=== PATIENT | female | born 1970 | race Caucasian/White ===

== ENCOUNTER 2018-04-11 11:03 | Emergency (ER) | END 2018-04-11 11:40 | disposition home or self-care (01) ==

== ENCOUNTER 2018-09-21 11:33 | Emergency (ER) | payer MEDICAID ==
[~2018-09-21] VITALS: Ht 165.1 cm; Wt 93.4 kg
[~2018-09-21 11:33] MED LIST: AMOX1TAB10 PO; BENZ-6 PO; CETI10CA PO; CYCL10TA7 PO; FLUT9.9S NASAL; GUAI-637 PO; NAPR-985 PO; NITR-58 PO; PHEN-537 PO
[2018-09-21 11:37] VITALS: Ht 165.1 cm; Wt 93.4 kg
[2018-09-21] MEDS ORDERED: AMLO-147 PO (19:24)
[2018-09-21] MEDS ORDERED: HYDR25TA6 PO (19:24)
[2018-09-21] MEDS ORDERED: ALBU8.5H8 INH (19:24)
--- NOTE | 2018-09-21 19:28 | ERD ---
ER Documentation Chief Complaint Chief Complaint PRODUCTIVE COUGH X 2 WEEKS, HTN HPI This is a 48-year-old woman complaining of nonproductive cough x2 weeks she does have a history of hypertension and has been using benazepril x2 years but states when she stopped using her benazepril 3 days ago her coughing improved (but her blood pressure went up). She suspected her benazepril may have something to do with her nonproductive cough. She has had no URI symptoms, no recent travel no calf or leg swelling, no chest pain, no fevers or chills, no sick contacts. She denies headache or blurry vision. ROS All systems reviewed and are negative except as per history of present illness. Medications Home Meds Active Scripts Hydrochlorothiazide* (Hydrochlorothiazide*) 25 Mg Tab, 25 MG PO DAILY, #30 TAB Prov:FAY KITCHEN MD 09/21/18 Amlodipine Besylate* (Amlodipine Besylate*) 10 Mg Tablet, 10 MG PO DAILY, #30 TAB Prov:FAY KITCHEN MD 09/21/18 Albuterol Sulfate* (Proair HFA*) 8.5 Gm Hfa.aer.ad, 2 PUFF INH Q6H PRN for WHEEZING AND SOB, #1 INHALER Prov:FAY KITCHEN MD 09/21/18 Guaifenesin* (Robitussin*) 100 Mg/5 Ml Syrup, 200 MG PO Q6H PRN for COUGH, #120 ML Prov:POLY BENJAMIN NP 04/11/18 Benzonatate* (Tessalon Perle*) 100 Mg Capsule, 100 MG PO Q8H PRN for COUGH, #30 CAP Prov:POLY BENJAMIN NP 04/11/18 Cetirizine Hcl* (Zyrtec*) 10 Mg Capsule, 10 MG PO DAILY, #30 TAB.CHEW Prov:POLY BENJAMIN NP 04/11/18 Fluticasone Propionate (Flonase Allergy Relief) 9.9 Ml [place].susp, 1 SPRAY NASAL DAILY, #1 BOTTLE TO EACH NOSTRIL Prov:POLY BENJAMIN NP 04/11/18 Phenazopyridine Hcl* (Pyridium*) 100 Mg Tab, 100 MG PO TID PRN for URINARY PAIN, #8 TAB Prov:JOSE SHANNON PA-C 05/10/16 Nitrofurantoin Monohyd Macrocr* (Macrobid*) 100 Mg Capsr, 100 MG PO HS for 7 Days, CAP Prov:JIJOSE WHITE PA-C 05/10/16 Amoxicillin/Potassium Clav (Amox-Clav 875-125 mg Tablet) 875-125 mg Tab, 1 TAB PO BID for 7 Days, #14 TAB Prov:DEACON SMITH PA-C 03/01/16 Cyclobenzaprine Hcl* (Cyclobenzaprine Hcl*) 10 Mg Tablet, 10 MG PO QHS, #14 TAB Prov:DEACON SMITH PA-C 03/01/16 Naproxen* (Naprosyn*) 500 Mg Tablet, 500 MG PO BID PRN for PAIN AND/OR INFLAMMATION, #30 TAB Prov:DEACON SMITH PA-C 03/01/16 Allergies Allergies: Coded Allergies: No Known Drug Allergy (Verified Allergy, Unknown, 05/10/16) PMhx/Soc Hypertension, obesity History of Surgery: Yes () Anesthesia Reaction: No Hx Neurological Disorder: No Hx Respiratory Disorders: No Hx Cardiac Disorders: No Hx Psychiatric Problems: No Hx Miscellaneous Medical Probl: Yes (HTN) Hx Alcohol Use: No Hx Substance Use: No Hx Tobacco Use: No Smoking Status: Never smoker FmHx Family History: No diabetes Physical Exam Vitals Vital Signs Date Temp Pulse Resp B/P (MAP) Pulse Ox O2 O2 Flow FiO2 Time Delivery Rate 09/21/18 98.9 87 18 190/108 97 11:37 (135) Physical Exam GENERAL: Well-developed, well-nourished, well-hydrated, in no apparent distress, looks nontoxic in appearance HEENT: Moist mucous membranes, pink conjunctiva, no cervical spine tenderness or step-off deformities, no goiter, no jaundice or icterus, extraocular movements intact without pain. No submandibular induration, and no pharyngeal erythema NEURO: Alert and oriented 3, cranial nerves II through XII intact bilaterally, pupils equal round reactive to light, no focal deficits or facial asymmetry, sensation intact distally Strength 5/5 in upper and lower extremities bilaterally CARDIAC: Regular rate and rhythm, no murmurs rubs or gallops LUNGS: Clear bilaterally no wheezing crackles or stridor ABDOMEN: Soft nontender, no guarding, no rigidity, no rebound, no psoas sign no obturator sign. Normoactive bowel sounds SKIN: Warm and dry to touch, no abrasions, contusions, or hematomas, no lacerations, no ecchymosis, no target lesions, and without ulcers EXTREMITIES: No clubbing cyanosis or edema, calves are bilaterally symmetrical, no Homans sign, no popliteal cord sign. Distal pulses equal and bilateral PSYCH: Normal affect without agitation or irritability Procedures/MDM Chest X-ray 1V Interpreted by me: Soft Tissue: No acute abnormalities Bones: No acute abnormalities Mediastinum/Cardiac Silhouette/Lungs: No acute abnormalities Patient's lung sounds were clear on her hypertension that was present on initial triage did improve in the emergency department, she is asymptomatic now and I do agree with her that her PARVIN inhibitor medication was in fact the cause of her nonproductive cough. I will prescribe her albuterol as needed cough and recommend that she discontinue benazepril and instead use hydrochlorothiazide and amlodipine both of which I prescribed. She will have to follow-up with PMD for continued outpatient management and possible medication changes or dosage changes. Differential diagnoses considered, included but not limited to acute coronary syndrome, pulmonary embolism, aortic dissection, abdominal aortic aneurysm, sepsis, stroke, meningitis, encephalitis, pneumonia, appendicitis, cholecystitis, bowel obstruction, pyelonephritis, nephrolithiasis, cystitis, as well as metabolic, hematologic, and electrolyte abnormalities. As well as abscess, cellulitis, fractures, and dislocations. Patient feels much better at this time, and vital signs are normal, symptoms have improved. I did give strict instructions to return to the ED if symptoms continue or worsen, patient will otherwise follow-up with primary care physician. Patient understood instructions and agreed to plan. Disclaimer: Inadvertent spelling and grammatical errors are likely due to EHR/dictation software use and do not reflect on the overall quality of patient care. Also, please note that the electronic time recorded on this note does not necessarily reflect the actual time of the patient encounter. Departure Diagnosis: Primary Impression: PARVIN-inhibitor cough Additional Impression: Hypertension Hypertension type: essential hypertension Qualified Codes: I10 - Essential (primary) hypertension Condition: Good Patient Instructions: Angiotensin Receptor Blockers (ARBs), Hypertension, Established FAY KITCHEN MD Sep 21, 2018 19:28
[2018-09-21] MEDS ORDERED: FLUT16SP17 NASAL (19:33)
[2018-09-21] MEDS ORDERED: [UNRECOGNIZED DRUG - CODE] PO (19:34)
[2018-09-21 19:50] VITALS: BP 165/95; PULSE 80; RESP 16
== END 2018-09-21 19:52 | disposition home or self-care (01) ==
LOC: E/R 11:33
DX: R05 Cough (principal); I10 Essential (primary) hypertension
CPT/HCPCS: 71045; Z7502

== ENCOUNTER 2019-01-13 07:45 | Emergency (ER) | payer MEDICAID ==
[~2019-01-13] VITALS: Ht 167.6 cm; Wt 98.8 kg
[~2019-01-13 07:45] MED LIST changes: +ALBU8.5H8 INH; +AMLO-147 PO; -BENZ-6 PO; -CETI10CA PO; -CYCL10TA7 PO; +FLUT16SP17 NASAL; -FLUT9.9S NASAL; -GUAI-637 PO; +HYDR-4011 PO; +HYDR25TA6 PO; +IBUP-1542 PO; -NAPR-985 PO; -NITR-58 PO; -PHEN-537 PO; +[UNRECOGNIZED DRUG - CODE] PO
[2019-01-13 07:50] VITALS: BP 130/87; PULSE 84; RESP 18; Ht 167.6 cm; Wt 98.8 kg
== END 2019-01-13 08:41 | disposition home or self-care (01) ==
LOC: FTE 07:45
DX: K04.7 Periapical abscess without sinus (principal); I10 Essential (primary) hypertension
CPT/HCPCS: 99283